=== PATIENT | female | born 1955 | race African-American/Black ===

== ENCOUNTER 2021-07-03 07:27 | Outpatient (CLI) | payer OTHER, SELFPAY ==
--- NOTE | ~2021-07-03 | MM_ITS ---
EXAMINATION: MM screening kathe BI w teresita HISTORY: Screening TECHNIQUE: Craniocaudal and mediolateral oblique 3-D tomosynthesis images were obtained and synthetic 2-D images were generated. CAD analysis was submitted and interpreted. COMPARISON: 12/13/2017 BREAST PARENCHYMAL COMPOSITION: There are scattered areas of fibroglandular density. FINDINGS: There is no evidence of suspicious mass, calcification, or architectural distortion to sugg est malignancy in either breast. There has been no suspicious interval change. IMPRESSION: 1. No mammographic evidence of malignancy. 2. Recommend routine screening mammography in one year. BI-RADS Category 1: Negative Reviewed, dictated and finalized at location A. ICULUM AND ASSESSMENT COORDINATOR
== END 2021-07-03 07:28 | disposition home or self-care (01) ==
PROVIDERS: PCP Family Medicine; Visit Provider Nurse Practitioner Family
DX: Z12.31 Encounter for screening mammogram for malignant neoplasm of breast (principal)
CPT/HCPCS: 77063; 77067

== ENCOUNTER → 2021-09-01 04:45 | Outpatient (CLI) | payer OTHER, SELFPAY ==
[2021-09-01 11:22] LABS: SARS-CoV-2 RNA PCR Positive
== END ==
PROVIDERS: PCP Family Medicine; Visit Provider Nurse Practitioner Family
DX: U07.1 COVID-19 (principal)
CPT/HCPCS: C9803; U0003; U0005

== ENCOUNTER 2021-10-11 00:57 | Day surgery (SDC) | payer OTHER, SELFPAY ==
[2021-09-27 13:50] VITALS: BMI 28.0
[2021-10-11 10:03] VITALS: BP 126/82; PULSE 72; RESP 16; TEMP 36.2; O2SAT 97
[2021-10-11] MEDS: LACTATED RINGERS 1,000 ML 150 ML IV CONT (10:15)
--- NOTE | 2021-10-11 10:18 | PM.HPGS ---
History of Present Illness History of Present Illness Consent: Risks, benefits, and alternatives have been discussed and questions answered. Patient agrees to proceed with procedure. Chief complaint: hx of colon polyps, neoplasm screening Narrative: Maria C Edmond is a 66 year old female Referred for colon cancer screening. She has history of polyps. Review of Systems Review of Systems: All systems reviewed & are unremarkable except as noted in HPI and below PMFSH Family History Family History (Updated 01/14/14 @ 07:13 by DOCTOR UNKNOWN) Mother Family history of thyroid disease Hypertension Family history of heart disease in male family member before age 55 Father Hypertension Family history of heart disease in male family member before age 55 Sibling Hypertension Social History Social History Smoking packs per day: 1 Smoking cigarettes per day: 20.0 Years smoked: 48 Smoking pack-years: 48.00 Smoking status: Current every day smoker Tobacco type: cigarettes Alcohol intake: current Drinks per week: 6 Substance use type: does not use Living arrangements: with family Spiritual care concerns: No Meds Home Medications and Allergies Home Medications Medication Instructions Recorded Confirmed Type amlodipine 10 mg tablet 10 mg PO DAILY 09/27/21 10/11/21 History ergocalciferol (vitamin D2) 1,250 1,250 mcg PO WEEKLY 09/27/21 10/11/21 History mcg (50,000 unit) capsule fluticasone propionate 50 1 spray intranasal DAILY 09/27/21 10/11/21 History mcg/actuation nasal spray,suspension furosemide 20 mg tablet 20 mg PO PRN PRN Edema 09/27/21 10/11/21 History montelukast 10 mg tablet 10 mg PO DAILY 09/27/21 10/11/21 History rosuvastatin 10 mg tablet 10 mg PO DAILY 09/27/21 10/11/21 History Allergies Allergy/AdvReac Type Severity Reaction Status Date / Time tetracycline Allergy Unknown Unknown Verified 10/11/21 10:01 Vital Signs Vital Signs - 24 hr 10/11/21 10:03 Temperature 36.2 C L Pulse Rate 72 Respiratory Rate 16 Blood Pressure 126/82 Pulse Oximetry 97 Oxygen Delivery Room Air Exam Resp: Auscultation: clear to auscultation bilaterally Cardio: Rate: regular rate Rhythm: regular rhythm GI: GI Palp: Yes Soft to palpation and No Tenderness to palpation present (GI) Assessment and Plan Assessment and plan (1) Colon cancer screening: Code(s): Z12.11 - Encounter for screening for malignant neoplasm of colon Status: Acute Assessment and Plan: Colonoscopy with possible biopsy or polypectomy or cautery or injection of substances.
--- NOTE | 2021-10-11 10:27 | P.PNAN_ITS ---
Anes - Initial Pre Proc Eval Procedure: Operation Date: 10/11/21 11:00 Proposed Procedures p Screening Colonoscopy - Darrin Banks MD Date/Time: 10/11/21 10:27 Surgeon: Darrin Banks MD Pre Op Diagnosis: hx of colon polyps, neoplasm screening Patient Data Age: 66 Gender: F Height: 1.63 m Weight: 71.2 kg Last Vital Signs Temp 97.2 F L 10/11/21 10:03 Pulse 72 10/11/21 10:03 Resp 16 10/11/21 10:03 BP 126/82 10/11/21 10:03 Pulse Ox 97 10/11/21 10:03 O2 Del Method Room Air 10/11/21 10:03 Allergies Allergy/AdvReac Type Severity Reaction Status Date / Time tetracycline Allergy Unknown Unknown Verified 10/11/21 10:01 Home Medications Medication Instructions Recorded Confirmed Type amlodipine 10 mg tablet 10 mg PO DAILY 09/27/21 10/11/21 History ergocalciferol (vitamin D2) 1,250 1,250 mcg PO WEEKLY 09/27/21 10/11/21 History mcg (50,000 unit) capsule fluticasone propionate 50 1 spray intranasal DAILY 09/27/21 10/11/21 History mcg/actuation nasal spray,suspension furosemide 20 mg tablet 20 mg PO PRN PRN Edema 09/27/21 10/11/21 History montelukast 10 mg tablet 10 mg PO DAILY 09/27/21 10/11/21 History rosuvastatin 10 mg tablet 10 mg PO DAILY 09/27/21 10/11/21 History Patient hx anesthesia problems: none Family hx anesthesia problems: none Results Review: All pre-operative results and documents have been reviewed as part of the pre- operative evaluation. [facility] Family History Family History (Updated 01/14/14 @ 07:13 by DOCTOR UNKNOWN) Mother Family history of thyroid disease Hypertension Family history of heart disease in male family member before age 55 Father Hypertension Family history of heart disease in male family member before age 55 Sibling Hypertension Social History Social History Smoking packs per day: 1 Smoking cigarettes per day: 20.0 Years smoked: 48 Smoking pack-years: 48.00 Smoking status: Current every day smoker Tobacco type: cigarettes Alcohol intake: current Drinks per week: 6 Substance use type: does not use Living arrangements: with family Spiritual care concerns: No Anes - Eval Final PreProcedure Day of Procedure 10/11/21 10:27 Patient weight: normal Heart: regular rate and rhythm Lungs: clear to auscultation Airway: Mallampati scale class II Neurological: alert and oriented Last oral intake: >/= 8 hours ASA classification: II Emergent: no Anesthetic plan: proceed Anesthesia type and monitoring: general GIVS and standard monitoring Results Review: All pre-operative results and documents have been reviewed as part of the pre- operative evaluation. Informed Consent: The patient's anesthetic plan and its attendant risks and benefits were discussed with the patient/family/POA. Questions were solicited and answers provided to the satisfaction of the patient/family/POA.
[2021-10-11 11:06] VITALS: BP 98/72; PULSE 87; RESP 20; O2SAT 100
[2021-10-11 11:16] VITALS: BP 119/82; PULSE 77; RESP 23; O2SAT 100
[2021-10-11 11:26] VITALS: BP 123/73; PULSE 74; RESP 21; O2SAT 100
== END 2021-10-11 11:45 | disposition home or self-care (01) ==
PROVIDERS: PCP Family Medicine; Visit Provider Internal Medicine Gastroenterology
PROC: 0DJD8ZZ Inspection of Lower Intestinal Tract, Via Natural or Artificial Opening Endoscopic (ICD-10-PCS; CPT 45378; principal; 2021-10-11 11:00)
DX: Z12.11 Encounter for screening for malignant neoplasm of colon (principal); F17.210 Nicotine dependence, cigarettes, uncomplicated; K57.30 Diverticulosis of large intestine without perforation or abscess without bleeding
CPT/HCPCS: 45378; J7120

== ENCOUNTER → 2021-12-15 03:03 | Outpatient (CLI) | payer OTHER, SELFPAY ==
[2021-12-15 11:25] LABS: SARS-CoV-2 RNA PCR Negative
== END ==
PROVIDERS: PCP Family Medicine; Visit Provider Family Medicine
DX: Z20.822 Contact with and (suspected) exposure to COVID-19 (principal)
CPT/HCPCS: C9803; U0003; U0005

== ENCOUNTER 2022-01-25 13:28 | Emergency (ER) | payer OTHER, SELFPAY ==
[2022-01-25 13:50] VITALS: BP 116/97; PULSE 91; RESP 18; TEMP 36.8; O2SAT 100
--- NOTE | 2022-01-25 14:01 | ED.GENADULT ---
HPI - General Adult General Chief complaint: Upper Respiratory Infection Stated complaint: pain in righ side ribcage History of Present Illness HPI narrative: 66 y/o AA female. PMHx HTN, Dyslipidemia. Presents to [facility] today with acute complaints of nasal congestion, productive cough, and RT lower rib pain worsening in the past 4 weeks. Client tells me her cough has become more persistent, now with 'yellow' phlegm production, and 'when she coughs her lower ribs hurt' on the RT. 'Holding her ribs' does seem to ease this discomfort. No fevers. No dizziness, ERVIN. No chest pain, palpitations, dyspnea, edema. No Nausea/vomiting. She denies known ill contacts. She is a daily cigarette smoker. No additional acute c/o upon PE. Related Data Home Medications Medication Instructions Recorded Confirmed amlodipine 10 mg tablet 10 mg PO DAILY 09/27/21 01/25/22 ergocalciferol (vitamin D2) 1,250 1,250 mcg PO WEEKLY 09/27/21 01/25/22 mcg (50,000 unit) capsule fluticasone propionate 50 1 spray intranasal DAILY 09/27/21 01/25/22 mcg/actuation nasal spray,suspension furosemide 20 mg tablet 20 mg PO PRN PRN Edema 09/27/21 01/25/22 montelukast 10 mg tablet 10 mg PO DAILY 09/27/21 01/25/22 rosuvastatin 10 mg tablet 10 mg PO DAILY 09/27/21 01/25/22 Allergies Allergy/AdvReac Type Severity Reaction Status Date / Time tetracycline Allergy Unknown Unknown Verified 01/25/22 13:47 Review of Systems Review of Systems: CONSTITUTIONAL: Denies fever, chills, sweats. EYES: Denies visual changes, redness, discharge. ENT: Positive rhinorrhea/congestion. No sore throat, otalgia. CARDIOVASCULAR: Denies chest pain, palpitations, edema. Chest wall pain RT lower 'when she coughs'. RESPIRATORY: Productive cough. Denies dyspnea, wheezing. GASTROINTESTINAL: Denies abdominal pain, nausea, vomiting, diarrhea. GENITOURINARY: Denies dysuria, hematuria, abnormal discharge SKIN: Denies rash or itching. MUSCULOSKELETAL: Denies acute back pain, joint pain, or myalgia. NEUROLOGIC: Denies numbness, or focal weakness. PSYCHIATRIC: Denies anxiety or depression. PMFSH Family History Family History Mother Family history of thyroid disease Hypertension Family history of heart disease in male family member before age 55 Father Hypertension Family history of heart disease in male family member before age 55 Sibling Hypertension Social History Social History Smoking packs per day: 1 Smoking cigarettes per day: 20.0 Years smoked: 48 Smoking pack-years: 48.00 Smoking status: Current every day smoker Tobacco type: cigarettes Alcohol intake: current Drinks per week: 6 Substance use type: does not use Spiritual care concerns: No Exam Narrative: GENERAL: This is a well-nourished, well-developed adult, in no apparent distress. HEAD: normocephalic, atraumatic. EYES: PERRL. Sclera clear/white. EARS: External ears normal, auditory canals clear and without drainage, TMs normal. NOSE: External nose normal. Positive Rhinorrhea, no obstruction, nares patent. THROAT: Mucous membranes moist, posterior pharynx clear. No exudates. +PND. NECK: Neck supple, non-tender without lymphadenopathy, masses or thyromegaly. CARDIOVASCULAR: Regular rate and rhythm without murmurs, gallops, or rubs. With reproducible RT lower chest wall tenderness, intercostal spaces respectively 7-10. No crepitus, no flailing. No deformity. RESPIRATORY: Breath sounds equal bilaterally. Upper airway Rhonchi, cleared w/cough. No wheezes, or rales. GASTROINTESTINAL: Abdomen soft, non-tender, nondistended. Bowel sounds are active. No guarding. SKIN: warm, intact with no suspicious lesions or rash, good texture and turgor. NEURO: Alert, active, and age appropriate. Course Course Level of Care: Express Care Visit Vital Signs Vital signs
== END 2022-01-25 14:08 | disposition home or self-care (01) ==
PROVIDERS: Emergency Provider Nurse Practitioner Adult Health; PCP Family Medicine
DX: J06.9 Acute upper respiratory infection, unspecified (principal); M94.0 Chondrocostal junction syndrome [Tietze]; F17.210 Nicotine dependence, cigarettes, uncomplicated
CPT/HCPCS: 99213; G0463

== ENCOUNTER 2022-02-09 09:18 | Outpatient (CLI) | payer OTHER, SELFPAY ==
--- NOTE | ~2022-02-09 | XR_ITS ---
XR ribs RT 2V w CXR 2V DATE: 02/09/2022 09:40 INDICATION: Chest wall pain TECHNIQUE: PA and lateral chest. 3 views of the right ribs. COMPARISON: None FINDINGS: Normal heart size. There is aortic calcification and mild tortuosity. No hilar or mediastin al enlargement. No pulmonary infiltrate or consolidation, pleural effusion or pulmonary vascular congestion or pneumo thorax. Osteopenia. [place] device is noted at the lateral aspect of the right humeral head. No right rib fracture or bone destruction is detected. IMPRESSION: No active cardiac pulmonary disease Aortic atherosclerosis Osteopenia No right rib fracture or bone destruction Reviewed, dictated and finalized at location B.
== END 2022-02-09 09:19 ==
LOC: MICIMG 09:22
PROVIDERS: PCP Family Medicine; Visit Provider Physician Assistant
DX: R07.89 Other chest pain (principal); I70.0 Atherosclerosis of aorta; M85.89 Other specified disorders of bone density and structure, multiple sites
CPT/HCPCS: 71046; 71100

== ENCOUNTER → 2022-11-15 10:36 | Outpatient (CLI) | payer MEDICARE, OTHER, SELFPAY ==
--- NOTE | ~2022-11-15 | XR_ITS ---
Left Shoulder Technique: AP and scapular Y views were obtained. Clinical History: Pain Findings: No fracture or dislocation is seen. Osseous alignment is anatomic. The glenohumeral and acr omioclavicular joint spaces are preserved. Soft tissues are unremarkable. Impression: Unremarkable left shoulder radiographs. Reviewed, dictated and finalized at [facility]. Impression: Unremarkable left shoulder radiographs.
--- NOTE | ~2022-11-15 | XR_ITS ---
Lumbosacral Spine: AP and lateral views Clinical History: Pain Findings: The normal lordotic curve is maintained. The vertebral bodies and posterior elements are i ntact. There are minimal facet joint and degenerative disc changes in the lumbar spine. The sacroilia c joints are normally outlined. Impression: Minimal degenerative change. Reviewed, dictated and finalized at location . Impression: Minimal degenerative change.
== END ==
PROVIDERS: PCP Family Medicine; Visit Provider Family Medicine
DX: M25.512 Pain in left shoulder (principal); M79.605 Pain in left leg
CPT/HCPCS: 72100; 73030

== ENCOUNTER → 2023-04-08 13:02 | Outpatient (CLI) | payer MEDICARE, OTHER, SELFPAY ==
--- NOTE | ~2023-04-08 | DEXA_ITS ---
Bone Density Report Name: MACARIO ACUÑA Age: 67 Sex: Female Ethnicity: Black Date of : 1955 Indication: postmenopausal; screening for osteoporosis; Referring Provider: ROYAL, YULI [place] Study: Bone densitometry was performed. Exam Date: April 08, 2023 Accession number: [id number] Bone Density: Region BMD T-score Z-score Classification AP Spine (L1-L4) 0.852 -1.8 -0.7 Osteopenia Femoral Neck (Left) 0.700 -1.3 -0.5 Osteopenia Total Hip (Left) 0.793 -1.2 -0.5 Osteopenia Femoral Neck (Right) 0.618 -2.1 -1.0 Osteopenia Total Hip (Right) 0.785 -1.3 -0.6 Osteopenia Total Hip Mean 0.789 -1.3 -0.6 Osteopenia World Health Organization criteria for BMD impression classify patients as: Normal (T-score at or above -1.0), Osteopenia (T-score between -1.0 and -2.5), or Osteoporosis (T-score at or below -2.5). 10-year Fracture Risk(1): Major Osteoporotic Fracture 5.1% Hip Fracture 1.3% Reported Risk Factors: [place] (Black), Neck BMD=0.618, BMI=27.5, smoking (1) FRAX(R) Version 3.08. Fracture probability calculated for an untreated patient. Fracture probability may be lower if the patient has received treatment. Clinical Information Provided by Patient: Smokes Has used the following medications: Vitamin D, MTV off and on Patient maximum height was 64 Menopause Age: 39 No regular weight bearing exercise Does not regularly consume dairy products Drinks caffeinated beverages Onset of menses at age 12 Number of children 2 Impression: The patient has low bone mass, based on the Right Femoral Neck T-score. The patient has an estimated ten-year risk of hip fracture of 1.3% and an estimated ten-year risk of major fracture of 5.1%, based on the WHO FRAX algorithm. The patient has risk factors, including: smoking. Discussion: BONE DENSITY IS LOW AT ONE OR MORE SKELETAL SITES. This patient's lowest T-score is low at one or more skeletal sites. It meets the World Health Organization's (WHO) criteria for ?low bone mass? (T-score between -1.0 and -2.5). The patient's 10-year risk of fracture as calculated by FRAX is less than the threshold where pharmacological therapy is recommended by the National Osteoporosis Foundation (NOF). However, all treatment decisions require clinical judgment and consideration of individual patient factors, including patient preferences, comorbidities, previous drug use, risk factors not captured in the FRAX model (e.g., frailty, falls, vitamin D deficiency, increased bone turnover, interval significant decline in bone density) and possible under or overestimation of fracture risk by FRAX. The patient should follow a healthful lifestyle (good nutrition with adequate calcium and vitamin D, and appropriate weight-bearing exercise). Follow-Up: Consider repeating this study in 2 to 3 years
--- NOTE | ~2023-04-08 | MM_ITS ---
EXAMINATION: MM screening kathe BI w teresita HISTORY: Screening mammogram TECHNIQUE: Craniocaudal and mediolateral oblique 3-D tomosynthesis images were obtained and synthetic 2-D images were generated. CAD analysis was submitted and interpreted. COMPARISON: July 03, 2021, December 13, 2017 bilateral screening mammogram examinations BREAST PARENCHYMAL COMPOSITION: There are scattered areas of fibroglandular density. FINDINGS: There is no evidence of suspicious mass, calcification, or architectural distortion to sugg est malignancy in either breast. There has been no suspicious interval change. IMPRESSION: 1. No mammographic evidence of malignancy. 2. Recommend routine screening mammography in one year. BI-RADS Category 1: Negative Reviewed, dictated and finalized at location A. USION FURNACE OPERATOR
== END ==
PROVIDERS: PCP Family Medicine; Visit Provider Family Medicine
DX: Z12.31 Encounter for screening mammogram for malignant neoplasm of breast (principal); Z78.0 Asymptomatic menopausal state; M85.89 Other specified disorders of bone density and structure, multiple sites
CPT/HCPCS: 77063; 77067; 77080

== ENCOUNTER 2024-07-19 11:48 | Emergency (ER) | payer MEDICARE, OTHER, SELFPAY ==
--- NOTE | 2024-07-19 11:59 | ED.SKABFB ---
HPI - Skin/Abscess/Foreign Bdy General Chief complaint: Skin/Abscess/Foreign Body Stated complaint: Rash Time Seen by Provider: 07/19/24 11:51 Source: patient Mode of arrival: ambulatory Limitations: no limitations History of Present Illness HPI narrative: Maria C is a 69-year-old female patient presenting to the clinic today with complaints of a rash x 2 weeks. Thinks that she may have ringworm. She reports started having a runny nose this morning. Is concerned that she may have COVID. She denies any fevers, chills, or body aches. Does have a slight scratchy throat with nasal drainage going in the back of her throat. Related Data Home Medications ?Medication ?Instructions ?Recorded ?Confirmed ?Last Taken ?Type amlodipine 10 mg tablet 10 mg PO DAILY 09/27/21 01/25/22 10/11/21 History fluticasone propionate 50 1 spray intranasal DAILY 09/27/21 01/25/22 10/10/21 History mcg/actuation nasal spray,suspension montelukast 10 mg tablet 10 mg PO DAILY 09/27/21 01/25/22 10/10/21 History rosuvastatin 10 mg tablet 10 mg PO DAILY 09/27/21 01/25/22 10/10/21 History meloxicam 7.5 mg tablet mg 07/19/24 Unknown History Allergies Allergy/AdvReac Type Severity Reaction Status Date / Time tetracycline Allergy Unknown Unknown Verified 07/19/24 12:19 Review of Systems Review of Systems: Pertinent positives per HPI. Patient denies any fever, chills, headache, visual changes, dizziness, sore throat, shortness of breath, chest pain, palpitations, nausea, vomiting, diarrhea, constipation, abdominal pain, or any urinary issues. [facility] Family History Family History Mother Family history of thyroid disease Hypertension Family history of heart disease in male family member before age 55 Father Hypertension Family history of heart disease in male family member before age 55 Sibling Hypertension Social History Social History Smoking packs per day: 1 Smoking cigarettes per day: 20.0 Years smoked: 48 Smoking pack-years: 48.00 Smoking status: Current every day smoker Tobacco type: cigarettes Alcohol intake: current Drinks per week: 6 Substance use type: does not use Living arrangements: with family Spiritual care concerns: No Comments At the time of my signature, I reviewed and agree with the nursing past medical, surgical, social, and family history. There is no relevant family history pertinent to the patient complaint. Exam Narrative: General: Well-developed, well nourished, in no apparent distress Head: Normocephalic, atraumatic Eyes: Pupils equally round and reactive to light bilaterally, EOM intact, sclera and conjunctive clear, no discharge, lids normal Ears: TMs intact and clear, ear canals clear, no drainage, grossly hearing normal. Nose: Nares patent, clear nasal discharge, no inflammation, no sinus tenderness. Mouth: Oropharynx without lesions or masses, good dentition, MMM. Postnasal drip Neck: Supple, trachea midline, no enlargement of anterior or posterior cervical nodes, no thyroid masses or goiter palpable. Cardio: Regular rate and rhythm, s1 and s2 normal, no murmur appreciated. Resp: Clear to auscultation bilaterally anteriorly and posteriorly, no rhonchi, rales, wheezing or rubs Integumentary: [place] [employer], warm, and dry, intact without lesion, mildly red, circular scaly rash with central clearing to the left scapula area Course Course Emergency Course: Portions of this record may have been created with voice recognition software. Level of Care: Express Care Visit Vital Signs Vital signs: Vital Signs Temperature 36.7 C 07/19/24 12:08 Pulse Rate 69 07/19/24 12:08 Respiratory Rate 16 07/19/24 12:08 Blood Pressure 138/87 07/19/24 12:08 Pulse Oximetry 100 07/19/24 12:08 Temperature 36.7 C 07/19/24 12:08 Pulse Rate 69 07/19/24 12:08 Respiratory Rate 16 07/19/24 12:08 Blood Pressure 138/87 07/19/24 12:08 Pulse Oximetry 100 07/19/24 12:08 Vital signs reviewed MDM - Skin/Abscess/Foreign Bdy MDM Narrative Medical decision making narrative: At the time of visit patient is resting comfortably on the exam table. Patient appears to be nontoxic. Labs: COVID testing was negative in the clinic today. Plan: I suspect patient has URI with any a corpus. Prescription for clotrimazole cream was sent to the pharmacy. Supportive measures were discussed with the patient and they voiced understanding discharge instructions and agrees to treatment plan. Return precautions reviewed Differential Diagnosis Differential diagnosis: Likely abscess of skin or subcutaneous tissue, viral exanthem, dermatophytosis, urticaria, herpes zoster, allergic reaction to drug, cellulitis, eczema, insect bites, impetigo, contact dermatitis and other (COVID, influenza, viral syndrome, upper respiratory infection) Lab Data Labs: Lab Results 07/19/24 Range/Units 12:25 POC SARS CoV-2 Ag Negative (Negative) Discharge Plan Discharge Clinical Impression: Tinea corporis URI (upper respiratory infection) Qualifiers: URI type: unspecified URI Qualified Code(s): J06.9 - Acute upper respiratory infection, unspecified Patient Disposition: Home, Self-Care Condition: Stable Instructions: Antibiotic Form, Tinea Corporis (ED), Cold Symptoms (ED) Additional Instructions: COVID testing was negative in the clinic today. Take prescription medications only as prescribed-clotrimazole Increase fluids and stay well hydrated Tylenol/motrin for pain/fever Flonase and OTC antihistamines as directed Vicks vapor rub to open sinuses Sinus rinses for congestion Cepacol spray, cough drops, throat lozenges, warm tea with honey/lemon, gargle salt water to soothe throat BRAT diet for diarrhea Clear liquids x 24 hours then advance as tolerated for nausea/vomiting Go to the ED if you develop a worsening in your condition- high fever not controlled by Tylenol or Motrin, dehydration, weakness, lethargy, shortness of breath, or chest pain. Follow up with your PCP in 3-5 days if symptoms persist. Patient Language: [place] Prescriptions: New clotrimazole 1 % cream 1 applic topical BID 28 Days Qty: 45 0RF No Action meloxicam 7.5 mg tablet amlodipine 10 mg tablet 10 mg PO DAILY montelukast 10 mg tablet 10 mg PO DAILY fluticasone propionate 50 mcg/actuation spray,suspension 1 spray INTRANASAL DAILY rosuvastatin 10 mg Tablet 10 mg PO DAILY Follow-up/Referrals: PHYSICIAN,REFRIGERATION OPERATOR [Primary Care Provider] - Time of Disposition: 12:25 Quality NIHSS Nursing Documentation ED NIHSS nursing documentation: reviewed/agree
[2024-07-19 12:08] VITALS: BP 138/87; PULSE 69; RESP 16; TEMP 36.7; O2SAT 100
[2024-07-19 12:26] LABS: EDCOVIDSCREEN Negative (Negative)
== END 2024-07-19 12:26 | disposition home or self-care (01) ==
PROVIDERS: Emergency Provider Nurse Practitioner Family
DX: B35.4 Tinea corporis (principal); J06.9 Acute upper respiratory infection, unspecified; F17.210 Nicotine dependence, cigarettes, uncomplicated
CPT/HCPCS: 87426; 99213; G0463